=== PATIENT | female | born 1995 | race Caucasian/White ===

== ENCOUNTER 2023-02-14 21:40 | Emergency (ER) | payer MEDICAID ==
[~2023-02-14] VITALS: Ht 172.7 cm; Wt 75.0 kg
[2023-02-14 21:49] VITALS: O2SAT 99
[2023-02-14 22:14] LABS: CLARITY URINE CLEAR (CLEAR); COLOR URINE YELLOW (YELLOW); KETONES URINE NEGATIVE (NEGATIVE); LEUKOCYTE ESTERASE URINE TRACE (NEGATIVE); NITRITE URINE POSITIVE (NEGATIVE); OCCULT BLOOD URINE NEGATIVE (NEGATIVE); PROTEIN URINE NEGATIVE (NEGATIVE); SPECIFIC GRAVITY URINE 1.025 (1.005-1.030); UROBILINOGEN URINE 0.2 E.U./dL (0.2-1.0)
[2023-02-15] MEDS ORDERED: KETOROLAC 30MG/ML VIAL IM ONE
[2023-02-15] MEDS ORDERED: SULFAMETHOXAZOLE/TRIMETHOPRIM 800/160MG TABLET PO ONE
[2023-02-15 00:59] VITALS: BP 109/75
[2023-02-15] MEDS ORDERED: SULF1TAB48 MT (01:18)
[2023-02-15] MEDS ORDERED: IBUP-2029 MT (01:18)
[2023-02-15] MEDS ORDERED: TRIA60LO12 TP (01:18)
[2023-02-15 02:02] VITALS: PULSE 92; RESP 16; TEMP 98.2
== END 2023-02-15 02:04 | disposition home or self-care (01) ==
LOC: ER 21:40
DX: N39.0 Urinary tract infection, site not specified (principal); L40.9 Psoriasis, unspecified
CPT/HCPCS: 81003; 81025; 71045; 99284; 96372; J1885; Z7610

== ENCOUNTER 2023-12-16 01:45 | Inpatient (IN) | payer MEDICAID, OTHER ==
[~2023-12-16] VITALS: Ht 157.5 cm; Wt 78.0 kg
[~2023-12-16 01:45] MED LIST: IBUP-2029 MT; SULF1TAB48 MT; TRIA60LO12 TP
[2023-12-16] MEDS: MAGNESIUM/ALUMINUM HYDROXIDE/SIMETHICONE 30ML UDC PO STA (04:00)
[2023-12-16] MEDS: ACETAMINOPHEN 1000MG/100ML 100 ML IV ONE (04:03)
[2023-12-16] MEDS: ONDANSETRON HCL 4MG/2ML INJ IV STA (04:03)
[2023-12-16] MEDS: SODIUM CHLORIDE 0.9% 1,000 ML IV ONE ×2 (04:03→15:13)
[2023-12-16 04:41] LABS: HEMATOCRIT. 38.2 % (36.0-48.0); HEMOGLOBIN. 12.4 g/dL (12.0-16.0); MEAN CORPUSCULAR HEMOGLOBIN 25.4 pg (28.0-32.0); MEAN CORPUSCULAR HGB CONC 32.5 g/dL (31.0-37.0); MEAN CORPUSCULAR VOLUME 78.2 fL (81.0-99.0); MEAN PLATELET VOLUME 7.9 fl (7.4-10.4); PLATELET 370 x1000/uL (130-400); RED BLOOD CELL COUNT 4.89 mill/uL (4.2-5.4); RED CELL DISTRIBUTION WIDTH 18.8 % (11.6-14.6); WHITE BLOOD COUNT 18.6 x1000/uL (4.5-11.0)
[2023-12-16 04:43] LABS: DIFFERENTIAL COMMENT 1
[2023-12-16 04:50] LABS: CHLORIDE 106 mEq/L (98-107); POTASSIUM 4.2 mEq/L (3.5-5.1); SODIUM 139 mEq/L (136-145)
[2023-12-16 04:51] LABS: CARBON DIOXIDE 25 mEq/L (21-32)
[2023-12-16 04:56] LABS: CREATININE 0.6 mg/dL (0.6-1.0); GLUCOSE 97 mg/dL (70-105)
[2023-12-16 04:57] LABS: UREA NITROGEN BLOOD 12 mg/dL (9-23)
[2023-12-16 04:58] LABS: ALANINE AMINOTRANSFERASE 28 IU/L (10-49); ALBUMIN 5.2 g/dL (3.2-4.8); ASPARTATE AMINOTRANSFERASE 32 IU/L (<34)
[2023-12-16 04:59] LABS: BILIRUBIN TOTAL 0.4 mg/dL (0.1-1.0); PROTEIN TOTAL 8.6 g/dL (6.0-8.3)
[2023-12-16 05:15] LABS: HCG SCREEN NEGATIVE
[2023-12-16 05:22] LABS: ETHANOL BLOOD < 10 mg/dL (<10)
[2023-12-16 05:48] LABS: INR 0.9; PROTHROMBIN TIME 10.3 sec (9.6-11.0)
[2023-12-16 07:52] LABS: CLARITY URINE CLOUDY (CLEAR); COLOR URINE YELLOW (YELLOW); GLUCOSE URINE NEGATIVE (NEGATIVE); KETONES URINE NEGATIVE (NEGATIVE); LEUKOCYTE ESTERASE URINE 1+ (NEGATIVE); NITRITE URINE POSITIVE (NEGATIVE); OCCULT BLOOD URINE NEGATIVE (NEGATIVE); PH URINE 5.5 (4.5-8.0); PROTEIN URINE TRACE (NEGATIVE); SPECIFIC GRAVITY URINE 1.028 (1.005-1.030); UROBILINOGEN URINE 0.2 E.U./dL (0.2-1.0)
[2023-12-16 08:19] LABS: MICROCYTOSIS 1+; PLATELET ESTIMATE NORMAL
[2023-12-16 08:36] LABS: *AMPHETAMINES SCREEN URINE NEGATIVE (NEGATIVE); *BENZODIAZEPINES SCREEN URINE NEGATIVE (NEGATIVE); SQUAMOUS EPITHELIAL CELL URINE 3+ /lpf (RARE/1+)
[2023-12-16 08:37] LABS: *BARBITURATES SCREEN URINE NEGATIVE (NEGATIVE); *COCAINE SCREEN URINE NEGATIVE (NEGATIVE); BACTERIA URINE 4+; CANNABINOID URINE SCREEN NEGATIVE (NEGATIVE); ECSTASY MDMA SCREEN URINE NEGATIVE (NEGATIVE); METHADONE URINE SCREEN Neg (NEGATIVE); OPIATES URINE SCREEN NEGATIVE (NEGATIVE); PHENCYCLIDINE URINE SCREEN NEGATIVE (NEGATIVE); RBC URINE 0-2 /hpf (0-2)
[2023-12-16] MEDS: CEFTRIAXONE 1GM/50ML 50 ML IV ONE (13:20)
[2023-12-16] MEDS: ONDANSETRON HCL 4MG/2ML INJ IV ONE (15:10)
[2023-12-16] MEDS ORDERED: ACETAMINOPHEN 325MG TABLET PO PRN (16:30)
[2023-12-16 17:43] VITALS: BP 123/90; PULSE 78; RESP 17; TEMP 98.5
[2023-12-16 17:45] VITALS: BP 123/90; PULSE 89; RESP 18; TEMP 98.5
[2023-12-16] MEDS ORDERED: IBUP-2029 PO (19:12)
[2023-12-16] MEDS ORDERED: CLOB60CR4 TP (19:12)
[2023-12-16] MEDS ORDERED: TC1C15 TP (19:12)
[2023-12-16 20:00] VITALS: BP 127/85; PULSE 78; RESP 18; TEMP 98.5
[2023-12-17] VITALS: BP 122/87; PULSE 87; RESP 18; TEMP 98.3
[2023-12-17] MEDS: DIPHENHYDRAMINE 50MG CAPSULE PO PRN (00:21)
[2023-12-17 04:00] VITALS: BP 115/76; PULSE 84; RESP 18; TEMP 97.4
[2023-12-17 08:00] VITALS: BP 127/85; PULSE 90; RESP 20; TEMP 98
[2023-12-17 09:59] LABS: HEPATITIS C AB NON REACTIVE (Neg) (Negative)
[2023-12-17 10:36] LABS: HEPATITIS B SURFACE ANTIGEN NEGATIVE (Negative)
[2023-12-17 11:54] LABS: BASOPHILS % 0.5 % (0.0-2.0); DIFFERENTIAL COMMENT 0; EOSINOPHILS % 2.4 % (0.0-5.0); HEMATOCRIT. 35.1 % (36.0-48.0); HEMOGLOBIN. 11.3 g/dL (12.0-16.0); LYMPHOCYTES % 27.3 % (20.0-50.0); MEAN CORPUSCULAR HEMOGLOBIN 25.1 pg (28.0-32.0); MEAN CORPUSCULAR HGB CONC 32.1 g/dL (31.0-37.0); MEAN CORPUSCULAR VOLUME 78.3 fL (81.0-99.0); MEAN PLATELET VOLUME 8.1 fl (7.4-10.4); MONOCYTES % 4.7 % (2.0-8.0); NEUTROPHILS % 65.1 % (40.0-76.0); PLATELET 384 x1000/uL (130-400); RED BLOOD CELL COUNT 4.48 mill/uL (4.2-5.4); RED CELL DISTRIBUTION WIDTH 18.4 % (11.6-14.6); WHITE BLOOD COUNT 6.9 x1000/uL (4.5-11.0)
[2023-12-17 12:00] VITALS: BP 120/50; PULSE 66; RESP 23; TEMP 97.4
[2023-12-17] MEDS ORDERED: CEFTRIAXONE 1GM/50ML 50 ML IV SCH (13:00)
[2023-12-17] MEDS: TRIAMCINOLONE ACETONIDE 0.1 % OINT 15GM TOP SCH (14:15)
[2023-12-17] MEDS: CEFTRIAXONE 1GM/50ML 50 ML IV SCH (14:46)
[2023-12-17 16:18] VITALS: BP 101/89; PULSE 80; RESP 19; TEMP 97.8
[2023-12-17] MEDS: KETOROLAC 30MG/ML VIAL IV PRN (16:39)
[2023-12-17] MEDS ORDERED: LEVO-65 MT (16:42)
[2023-12-17 20:00] VITALS: BP 106/68; PULSE 82; RESP 18; TEMP 97.6
[2023-12-18 04:00] VITALS: BP 108/73; PULSE 73; RESP 20; TEMP 97.5
[2023-12-18 08:00] VITALS: BP 112/74; PULSE 71; RESP 18; TEMP 97.7
[2023-12-18] MEDS: ONDANSETRON HCL 4MG/2ML INJ IV PRN (10:51)
[2023-12-18 12:00] VITALS: BP 123/74; PULSE 76; RESP 19; TEMP 97.9
[2023-12-18 16:00] VITALS: BP 116/77; PULSE 78; RESP 18; TEMP 97.3
[2023-12-18 20:00] VITALS: BP 109/82; PULSE 82; RESP 19; TEMP 97.4
[2023-12-19] VITALS: BP 112/60; PULSE 62; RESP 17; TEMP 97.9
[2023-12-19 04:00] VITALS: BP 108/64; PULSE 78; RESP 19; TEMP 98.6
[2023-12-19 08:00] VITALS: BP 113/72; PULSE 86; RESP 18; TEMP 96.4
[2023-12-19 12:00] VITALS: BP 111/71; PULSE 88; RESP 17; TEMP 96.1
[2023-12-19 14:06] VITALS: BP 111/71; PULSE 88; TEMP 96.1; O2SAT 98
== END 2023-12-19 14:55 | disposition home or self-care (01) | DRG 463 ==
LOC: ER 01:45 → 3WST 14:46 → EDBEDREQ 14:56 → EDBEDREQTM 14:56 → 3WST 19:43 → 6EST 12-17 21:36
PROVIDERS: ADMIT Internal Medicine; ATTEND Internal Medicine
DX: N39.0 Urinary tract infection, site not specified (principal); Z79.899 Other long term (current) drug therapy; Z87.442 Personal history of urinary calculi
CPT/HCPCS: 36415; 71045; 74176; 80053; 80305; 80320; 81003; 83605; 84703; 85025; 86705; 87340; 87426; 87804; 93005; 99291; J0696; J1885; J2405; J7030; Q0163; G0480; J0131

== ENCOUNTER 2024-07-08 17:37 | Emergency (ER) | payer MEDICAID, OTHER ==
[~2024-07-08] VITALS: Ht 162.6 cm; Wt 72.6 kg
[~2024-07-08 17:37] MED LIST changes: +CLOB60CR4 TP; +IBUP-2029 PO; +LEVO-65 MT; -SULF1TAB48 MT; +TC1C15 TP
[2024-07-08 17:44] VITALS: O2SAT 98
[2024-07-08] MEDS: BACITRACIN ZINC OINT UDPKT TOP ONE (20:45)
[2024-07-08] MEDS: LIDOCAINE HCL/PF 1% 10 MG/ML 5ML VIAL INFIL ONE (20:45)
[2024-07-08] MEDS ORDERED: AMOX1TAB16 MT (21:23)
[2024-07-08 22:04] VITALS: BP 119/71; PULSE 69; RESP 20; TEMP 36.66960; O2SAT 98
== END 2024-07-08 22:07 | disposition home or self-care (01) ==
LOC: ER 17:37
DX: L03.011 Cellulitis of right finger (principal); Z79.899 Other long term (current) drug therapy
CPT/HCPCS: 10060; 99283; J3490; Z7610 ×2

== ENCOUNTER 2024-09-13 21:52 | Emergency (ER) | payer MEDICAID, OTHER ==
[~2024-09-13] VITALS: Ht 167.6 cm; Wt 79.0 kg
[~2024-09-13 21:52] MED LIST changes: +AMOX1TAB16 MT
[2024-09-13 22:23] VITALS: BP 147/94; PULSE 108; RESP 18; O2SAT 100
[2024-09-14 01:15] VITALS: TEMP 98.5
[2024-09-14] MEDS: ACETAMINOPHEN 500MG TABLET PO ONE (01:15)
[2024-09-14] MEDS ORDERED: CLOB60CR4 TP (10:33)
[2024-09-14] MEDS ORDERED: TRIA60LO12 TP (10:33)
== END 2024-09-14 02:45 | disposition home or self-care (01) ==
LOC: ER 21:52
DX: Z00.00 Encounter for general adult medical examination without abnormal findings (principal); Z59.02 Unsheltered homelessness
CPT/HCPCS: 99282

== ENCOUNTER 2024-09-14 09:27 | Emergency (ER) | payer MEDICAID ==
[~2024-09-14] VITALS: Ht 165.1 cm; Wt 73.0 kg
[2024-09-14 09:34] VITALS: BP 132/92; PULSE 90; RESP 16; TEMP 98.2; O2SAT 100
[2024-09-14] MEDS ORDERED: TRIA60LO12 TP (10:33)
[2024-09-14] MEDS ORDERED: CLOB60CR4 TP (10:33)
[2024-09-14] MEDS: HYDROCORTISONE 1% RECTAL CREAM 30GM PR SCH (11:27)
== END 2024-09-14 10:14 | disposition home or self-care (01) ==
LOC: ER 09:27
DX: L40.9 Psoriasis, unspecified (principal); Z59.00 Homelessness unspecified; Z79.899 Other long term (current) drug therapy
CPT/HCPCS: 99283

== ENCOUNTER 2025-05-06 20:22 | Emergency (ER) | payer MEDICAID ==
[~2025-05-06] VITALS: Ht 157.5 cm; Wt 74.3 kg
[~2025-05-06 20:22] MED LIST changes: +IBUP-1455 MT; +IBUP-1455 PO; -IBUP-2029 MT; -IBUP-2029 PO
[2025-05-06 20:40] VITALS: O2SAT 98
[2025-05-06 21:30] LABS: CLARITY URINE CLEAR (CLEAR); COLOR URINE YELLOW (YELLOW); GLUCOSE URINE NEGATIVE (NEGATIVE); KETONES URINE TRACE (NEGATIVE); LEUKOCYTE ESTERASE URINE NEGATIVE (NEGATIVE); NITRITE URINE POSITIVE (NEGATIVE); OCCULT BLOOD URINE 3+ (NEGATIVE); PH URINE 5.5 (4.5-8.0); PROTEIN URINE TRACE (NEGATIVE); SPECIFIC GRAVITY URINE 1.026 (1.005-1.030); UROBILINOGEN URINE 0.2 E.U./dL (0.2-1.0)
[2025-05-06 22:05] LABS: BASOPHILS % 0.7 % (0.0-2.0); EOSINOPHILS % 1.9 % (0.0-5.0); HEMATOCRIT. 36.1 % (36.0-48.0); HEMOGLOBIN. 11.4 g/dL (12.0-16.0); LYMPHOCYTES % 24.9 % (20.0-50.0); MEAN PLATELET VOLUME 7.5 fl (7.4-10.4); MONOCYTES % 5.4 % (2.0-8.0); NEUTROPHILS % 67.1 % (40.0-76.0); PLATELET 393 x1000/uL (130-400); RED BLOOD CELL COUNT 4.50 mill/uL (4.2-5.4); RED CELL DISTRIBUTION WIDTH 16.2 % (11.6-14.6)
[2025-05-06 22:18] LABS: INR 1.0
[2025-05-06 22:19] LABS: CREATININE 0.6 mg/dL (0.6-1.0)
[2025-05-06 22:20] LABS: UREA NITROGEN BLOOD 10 mg/dL (9-23)
[2025-05-06 22:21] LABS: ASPARTATE AMINOTRANSFERASE 27 IU/L (<34)
[2025-05-06 22:22] LABS: BILIRUBIN DIRECT < 0.1 mg/dL (<=3.0); BILIRUBIN TOTAL 0.3 mg/dL (0.1-1.0); PROTEIN TOTAL 7.1 g/dL (6.0-8.3)
[2025-05-06 22:23] LABS: BACTERIA URINE 3+; RBC URINE 25-50 /hpf (0-2); SQUAMOUS EPITHELIAL CELL URINE FEW /lpf (RARE/1+); WBC URINE 0-2 /hpf (0-2)
[2025-05-06 22:30] LABS: HCG SCREEN NEGATIVE
[2025-05-06] MEDS ORDERED: CEPH500T MT (23:19)
[2025-05-07 01:09] VITALS: BP 114/79; PULSE 91; RESP 18; TEMP 36.8; O2SAT 97
== END 2025-05-07 01:28 | disposition home or self-care (01) ==
LOC: ER 20:22
DX: N39.0 Urinary tract infection, site not specified (principal); N93.8 Other specified abnormal uterine and vaginal bleeding; R10.2 Pelvic and perineal pain; Z79.899 Other long term (current) drug therapy
CPT/HCPCS: 36415; 76830; 76856; 80048; 80076; 81003; 81025; 84703; 85025; 87210; 99284